=== PATIENT | female | born 1980 | race Hispanic/Latino ===

== ENCOUNTER → 2019-03-09 | Outpatient (CLI) | payer OTHER, BC ==
--- OUTSIDE RECORDS SUMMARY | 2019-03-09 11:22 | XMS REPORT ---
Author Author [facility] Address Unknown Phone Unavailable Care Team Providers Care Telephone Interviewer Name Role Phone Unavailable Unavailable Problems This patient has no known problems. Allergies, Adverse Reactions, Alerts This patient has no known allergies or adverse reactions. Medications This patient has no known medications. Encounters Start Date/Time End Date/Time Encounter Type Admission Type Attending Clinicians Care Facility Care Department Encounter ID 2019-02-19 22:18:30 2019-02-19 22:18:30 Emergency [facility] [id number]
--- OUTSIDE RECORDS SUMMARY | 2019-03-09 11:22 | XMS REPORT | Clinical Summary ---
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 gastritis type 02/25/2019 cephALEXin (KEFLEX) 500 Take 1 20 capsule 0 mg capsuleIndications: capsule by 9 Acute cystitis without mouth 4 times hematuria daily for 5 days. Active Problems Not on file Encounters Care Team Description Date Type Specialty [place] Byrd MD Acute cystitis without hematuria (Primary Dx); Acute gastritis without hemorrhage, unspecified gastritis type 02/19/2019 Emergency Emergency Medicine - 02/20/2019 02/19/2019 Travel after 03/08/2018 Social History Date Tobacco Use Types Packs/Day Years Used Never Assessed Sex Assigned at Date Recorded Not on file Industry Job Start Date Occupation Not on file Not on file Not on file Travel End Travel History Travel Start No recent travel history available. Last Filed Vital Signs Reading Time Taken Comments Vital Sign 151/95 02/20/2019 2:27 AM CDT Blood Pressure 80 02/20/2019 2:27 AM CDT Pulse 36.7 C (98 F) 02/20/2019 2:27 AM CDT Temperature 16 02/20/2019 2:27 AM CDT Respiratory Rate 100% 02/20/2019 2:27 AM CDT Oxygen Saturation - - Inhaled Oxygen Concentration - - Weight - - Height - - Body Mass Index Plan of Treatment Health Maintenance Due Date Last Done Comments Cervical Cancer Scrn (3 2002 Yrs) IMM Influenza Seasonal 07/18/2019 Oct to December (>/=19 yrs) Procedures Comments Procedure Name Priority Date/Time Associated Diagnosis BMP POC Routine 02/20/2019 12:56 AM CDT POCT URINE DIPSTICK - STAT 02/20/2019 12:03 AM CDT LIPASE STAT 02/19/2019 11:57 PM CDT LIVER PROFILE STAT 02/19/2019 11:57 PM CDT CBC/DIFF STAT 02/19/2019 11:57 PM CDT UA CHEMISTRIES STAT 02/19/2019 10:47 PM CDT 12 LEAD EKG Routine 02/19/2019 9:40 PM CDT after 03/08/2018 Results * BMP POC (02/20/2019 12:56 AM CDT) CO2 POC 28Comment: Physician Notified 21 - 32 mmol/L [facility] Chloride POC 103 98 - 107 mmol/L [facility] 1 Potassium POC 3.5 3.50 - 5.10 mmol/L [facility] 1 Sodium POC 140 136 - 145 mmol/L [facility] 1 Glucose POC 96 74 - 106 mg/dL [facility] 1 Urea Nitrogen 7 7 - 18 mg/dL [facility] POC [facility] 1 Creatinine POC 0.9 0.6 - 1.3 mg/dL [facility] 1 Calcium Ionized 1.11 (L) 1.15 - 1.29 mmol/L [facility] POC [facility] 1 Hemoglobin POC 13.6 12.0 - 16.0 g/dL [facility] 1 Hematocrit POC 40.0 37.0 - 47.0 % [facility] 1 GFR, Estimated >60 mL/min/1.73 m2 [facility] 1 GFR, Estim, >60 mL/min/1.73 m2 [facility] Afr-Am [facility] 1 Specimen Performing Organization Address City/State/Zipcode Phone Number [facility]IS[facility] * POCT URINE DIPSTICK - (02/20/2019 12:03 AM CDT) pass Control negative * LIVER PROFILE (02/19/2019 11:57 PM CDT) T Protein 7.4 6.0 - 8.3 g/dL [facility] Albumin 3.8 3.7 - 5.3 g/dL [facility] 1 T Bilirubin 0.3 0.2 - 1.2 mg/dL [facility] 1 Alk Phos 62 34 - 104 U/L [facility] AST 19 13 - 39 U/L [facility] ALT 23 7 - 52 U/L [facility] 1 D Bilirubin 0.1 0.0 - 0.2 mg/dL [facility] 1 Specimen Blood Performing Organization Address City/[facility]/Zipcode Phone Number [facility] 1 * LIPASE (02/19/2019 11:57 PM CDT) Pathologist [facility] Lipase 22 11 - 81 U/L [facility] 1 Specimen Blood Performing Organization Address City/[facility]/Zipcode Phone Number [facility] * CBC/DIFF (02/19/2019 11:57 PM CDT) Pathologist [facility] WBC 6.6 4.5 - 11.0 K/uL [facility] RBC 4.52 4.20 - 5.40 M/uL [facility] Hemoglobin 12.8 12.0 - 16.0 g/dL [facility] 2 Hematocrit 40.6 37.0 - 47.0 % [facility] MCV 90 82 - 92 fL [facility] 2 MCH 28.3 27.0 - 32.0 pg [facility] MCHC 31.5 (L) 32.0 - 36.0 g/dL [facility] 2 RDW 42.2 36.4 - 46.3 fL [facility] Platelet 301 150 - 400 K/uL [facility] Mean Platelet 9.7 9.4 - 12.4 fL [facility] Volume [facility] 2 Percent NRBC 0.0 [facility] Absolute NRBC 0.00 [facility] Neutrophil 63.7 34.0 - 70.0 % [facility] Lymphocyte 24.5 20.0 - 50.0 % [facility] Monocyte 9.7 5.0 - 12.0 % [facility] Eosinophil 1.4 0.7 - 5.0 % [facility] Basophil 0.2 0.1 - 1.2 % [facility] Pct Immat Gran 0.5 0.0 - 0.5 [facility] Neutrophil, Abs 4.21 1.56 - 6.13 K/uL [facility] Lymphocyte, Abs 1.62 1.18 - 3.74 K/uL [facility] Monocyte, Abs 0.64 (H) 0.24 - 0.36 K/uL [facility] Eosinophil, Abs 0.09 0.04 - 0.36 K/uL [facility] 2 Basophil, Abs 0.01 0.01 - 0.08 K/uL [facility] 2 Absol Immat 0.03 0.00 - 0.03 K/uL [facility] Gran [facility] 2 Specimen Blood Performing Organization Address City/[facility] Phone Number [facility] 2 * UA CHEMISTRIES (02/19/2019 10:47 PM CDT) Color Stacey [facility] Clarity Cloudy [facility] Spec [place] 1.031 1.001 - 1.035 [facility] pH 5.0 5 - 8 [facility] Protein 1+ (A) NEG [facility] Glucose Negative NEG [facility] Ketone Trace (A) NEG [facility] Bilirubin Negative NEG [facility] Nitrate Negative NEG [facility] Urobilinogen <1.0 0.2 - 1.0 EU/dL [facility] Leukocyte 2+ (A) NEG [facility] Blood Negative NEG [facility] RBC 1 0 - 4 /HPF [facility] WBC 52 (H) 0 - 5 /HPF [facility] Bacteria Few [facility] Epithelial Cell 79 /HPF [facility] Mucous Present J B[facility] Specimen Urine Performing Organization Address City/[facility]/Zipcode Phone Number [facility] B[facility]OD [facility] * 12 LEAD EKG (02/19/2019 9:40 PM CDT) 12 LEAD [facility] Date:2019-02-19 Pat Name: JULIANALevon HERRERA Department: [id number] Room: Gender: F 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: MIGUEL :[id number] Requested By: DOC Bettencourt Order Number: [id number] Aditya MD: Brandon MARTINEZ Measurements Intervals [place] Rate: 106 P: 32 [place]: 137 QRS: 72 QRSD: 85 T:14 QT: 326 QTc:434 Interpretive Statements SINUS TACHYCARDIA POSSIBLE LEFT ATRIAL ENLARGEMENT POSSIBLE RIGHT VENTRICULAR CONDUCTION DELAY NONSPECIFIC T-WAVE ABNORMALITY ABNORMAL ECG Electronically Signed On 02-20-2019 10:58:34 CDT by Brandon MARTINEZ Specimen Performing Organization Address City/State/Zipcode Phone Number SMS after 03/08/2018 Insurance Type Payer Benefit Subscriber ID Effective Phone Address Plan / Dates Group BC/BS BC/BS PPO xxxxxxxxxxxx 2017-P [phone] [address] [place] [address] CIGNA CIGNA xxxxxxxxxxx 2018-0 [address] [place] M[place] [id number]
== END ==
LOC: OR 11:20 → LAB 11:20 → EDSTATUS 14:00
PROVIDERS: ATTEND Internal Medicine
DX: Z01.818 Encounter for other preprocedural examination (principal); R19.7 Diarrhea, unspecified; R14.0 Abdominal distension (gaseous); R10.9 Unspecified abdominal pain; R11.2 Nausea with vomiting, unspecified; Z53.8 Procedure and treatment not carried out for other reasons
CPT/HCPCS: 36415; 81025; 84702